=== PATIENT | male | born 1995 | race Caucasian/White ===

== ENCOUNTER → 2021-12-16 | Outpatient (CLI) | payer OTHER | LOC: M CARPUL 08:25 | PROVIDERS: ATTEND Physician Assistant | DX: R06.00 Dyspnea, unspecified (principal); R94.2 Abnormal results of pulmonary function studies ==

== ENCOUNTER → 2022-01-20 | Outpatient (CLI) | payer OTHER ==
[~2022-01-20] MED LIST: METHACHOLINE KIT (J7674) INH ONE
== END ==
LOC: M CARPUL 12:56
PROVIDERS: ATTEND Physician Assistant
DX: R06.00 Dyspnea, unspecified (principal); Z53.9 Procedure and treatment not carried out, unspecified reason

== ENCOUNTER → 2022-02-27 | Outpatient (CLI) | payer OTHER | LOC: M CARPUL 09:30 | PROVIDERS: ATTEND Physician Assistant | DX: R06.00 Dyspnea, unspecified (principal) | CPT/HCPCS: 94070; J7674 ==

== ENCOUNTER 2022-05-24 10:03 | Emergency (ER) | payer OTHER ==
[~2022-05-24] VITALS: Ht 177.8 cm; Wt 86.1 kg
[2022-05-24] MEDS ORDERED: ERYT5OIN25 OS (12:38)
[2022-05-24 12:45] VITALS: BP 132/81
[2022-05-24] MEDS ORDERED: ERYT5OIN25 OP (15:27)
== END 2022-05-24 12:52 | disposition home or self-care (01) ==
LOC: M ED 10:03
DX: H10.9 Unspecified conjunctivitis (principal); B34.9 Viral infection, unspecified; Z91.013 Allergy to seafood; Z91.048 Other nonmedicinal substance allergy status

== ENCOUNTER 2022-06-11 11:11 | Emergency (ER) | payer OTHER ==
[~2022-06-11] VITALS: Ht 177.8 cm; Wt 86.2 kg
[~2022-06-11 11:11] MED LIST changes: +ERYT5OIN25 OP; +ERYT5OIN25 OS; -METHACHOLINE KIT (J7674) INH ONE
[2022-06-11] MEDS ORDERED: IBUPROFEN 600MG TAB PO ONE (12:05)
[2022-06-11] MEDS ORDERED: CYCLOBENZAPRINE 5MG TABLET PO ONE (12:05)
[2022-06-11] MEDS ORDERED: CYCL-707 PO (13:09)
[2022-06-11 13:20] VITALS: BP 136/91
== END 2022-06-11 13:23 | disposition home or self-care (01) ==
LOC: M ED 11:11
DX: M54.50 Low back pain, unspecified (principal); W00.0XXA Fall on same level due to ice and snow, initial encounter; J30.81 Allergic rhinitis due to animal (cat) (dog) hair and dander; Z91.013 Allergy to seafood